=== PATIENT | male | born 1980 | race Caucasian/White ===

== ENCOUNTER 2021-02-11 14:02 | Emergency (ER) | payer MEDICAID ==
[~2021-02-11] VITALS: Ht 162.6 cm; Wt 64.0 kg
[2021-02-11] MEDS ORDERED: MORPHINE SULFATE 4 MG/ML CPJ (NOT FOR IM USE) IV STA (15:01)
[2021-02-11] MEDS ORDERED: FAMOTIDINE 20MG/2ML VIAL IV STA (15:01)
[2021-02-11] MEDS ORDERED: ONDANSETRON HCL 4MG/2ML INJ IV STA (15:01)
[2021-02-11] MEDS ORDERED: SODIUM CHLORIDE 0.9% 1,000 ML IV ONE (15:15)
[2021-02-11 15:43] LABS: BASOPHILS % 1.3 % (0.0-2.0); EOSINOPHILS % 0.6 % (0.0-5.0); HEMATOCRIT. 36.4 % (42.0-52.0); HEMOGLOBIN. 12.5 g/dL (14.0-18.0); MEAN CORPUSCULAR HEMOGLOBIN 29.7 pg (28.0-32.0); MEAN CORPUSCULAR VOLUME 86.7 fL (80.0-94.0); MEAN PLATELET VOLUME 6.8 fl (7.4-10.4); NEUTROPHILS % 52.1 % (40.0-76.0); PLATELET 396 x1000/uL (130-400); RED CELL DISTRIBUTION WIDTH 18.1 % (11.6-14.6)
[2021-02-11 15:48] LABS: CHLORIDE 106 mEq/L (98-107)
[2021-02-11 15:53] LABS: ETHANOL BLOOD 285 mg/dL
[2021-02-11 16:18] LABS: CLARITY URINE CLEAR (CLEAR); COLOR URINE YELLOW (YELLOW); KETONES URINE NEGATIVE (NEGATIVE); LEUKOCYTE ESTERASE URINE NEGATIVE (NEGATIVE); NITRITE URINE NEGATIVE (NEGATIVE); OCCULT BLOOD URINE NEGATIVE (NEGATIVE); PH URINE 6.5 (4.5-8.0); PROTEIN URINE NEGATIVE (NEGATIVE); SPECIFIC GRAVITY URINE 1.008 (1.005-1.030); UROBILINOGEN URINE 0.2 E.U./dL (0.2-1.0)
[2021-02-11 16:33] LABS: *AMPHETAMINES SCREEN URINE NEGATIVE (NEGATIVE); *BARBITURATES SCREEN URINE NEGATIVE (NEGATIVE); *BENZODIAZEPINES SCREEN URINE NEGATIVE (NEGATIVE); *COCAINE SCREEN URINE NEGATIVE (NEGATIVE); METHADONE URINE SCREEN NEGATIVE (NEGATIVE); OPIATES URINE SCREEN NEGATIVE (NEGATIVE); PHENCYCLIDINE URINE SCREEN NEGATIVE (NEGATIVE)
[2021-02-11 16:34] LABS: CANNABINOID URINE SCREEN NEGATIVE (NEGATIVE)
[2021-02-12] MEDS ORDERED: ONDANSETRON HCL 4MG/2ML INJ IV ONE ×3 (00:30→21:45)
[2021-02-12] MEDS ORDERED: IBUPROFEN 600MG TABLET PO ONE (00:30)
[2021-02-12] MEDS ORDERED: METOCLOPRAMIDE HCL 10MG/2ML VIAL IV ONE (04:00)
[2021-02-12] MEDS ORDERED: ACETAMINOPHEN 325MG TABLET PO ONE (21:45)
[2021-02-13 03:11] VITALS: BP 110/71
== END 2021-02-13 03:15 | disposition home or self-care (01) ==
LOC: ER 14:02
DX: R33.9 Retention of urine, unspecified (principal); F10.229 Alcohol dependence with intoxication, unspecified; Y90.8 Blood alcohol level of 240 mg/100 ml or more
CPT/HCPCS: 36415; 51702; 71045; 74176; 80053; 80305; 80320; 81003; 83690; 85025; 93005; 96374; 96375; 96376; 99285; J2270; J2405; J2765; J3490; J7030; Z7610; A4315; G0480

== ENCOUNTER 2021-02-24 03:07 | Emergency (ER) | payer MEDICAID ==
[~2021-02-24] VITALS: Ht 160 cm; Wt 61.0 kg
[2021-02-24] MEDS ORDERED: ACETAMINOPHEN 325MG TABLET PO STA (03:35)
[2021-02-24 04:15] VITALS: BP 110/80
[2021-02-24 04:27] LABS: CHLORIDE 112 mEq/L (98-107)
[2021-02-24 04:31] LABS: BASOPHILS % 0.3 % (0.0-2.0); EOSINOPHILS % 1.6 % (0.0-5.0); HEMATOCRIT. 36.5 % (42.0-52.0); HEMOGLOBIN. 12.3 g/dL (14.0-18.0); LYMPHOCYTES % 45.3 % (20.0-50.0); MEAN CORPUSCULAR HEMOGLOBIN 29.3 pg (28.0-32.0); MEAN CORPUSCULAR VOLUME 86.7 fL (80.0-94.0); MEAN PLATELET VOLUME 6.7 fl (7.4-10.4); NEUTROPHILS % 44.8 % (40.0-76.0); PLATELET 266 x1000/uL (130-400); RED BLOOD CELL COUNT 4.21 mill/uL (4.7-6.1); RED CELL DISTRIBUTION WIDTH 20.2 % (11.6-14.6)
[2021-02-24 05:06] LABS: CLARITY URINE CLEAR (CLEAR); COLOR URINE YELLOW (YELLOW); KETONES URINE NEGATIVE (NEGATIVE); LEUKOCYTE ESTERASE URINE NEGATIVE (NEGATIVE); NITRITE URINE NEGATIVE (NEGATIVE); OCCULT BLOOD URINE NEGATIVE (NEGATIVE); PH URINE 5.5 (4.5-8.0); PROTEIN URINE NEGATIVE (NEGATIVE); SPECIFIC GRAVITY URINE 1.013 (1.005-1.030); UROBILINOGEN URINE 0.2 E.U./dL (0.2-1.0)
[2021-02-24 06:07] LABS: *AMPHETAMINES SCREEN URINE NEGATIVE (NEGATIVE); *BARBITURATES SCREEN URINE NEGATIVE (NEGATIVE); *BENZODIAZEPINES SCREEN URINE PRESUMTIVE POSITIVE (NEGATIVE); *COCAINE SCREEN URINE NEGATIVE (NEGATIVE)
[2021-02-24 06:08] LABS: CANNABINOID URINE SCREEN NEGATIVE (NEGATIVE); METHADONE URINE SCREEN NEGATIVE (NEGATIVE); OPIATES URINE SCREEN NEGATIVE (NEGATIVE); PHENCYCLIDINE URINE SCREEN NEGATIVE (NEGATIVE)
[2021-02-24 07:22] LABS: ETHANOL BLOOD 463 mg/dL
== END 2021-02-24 05:34 | disposition left against medical advice (07) ==
LOC: ER 03:07
DX: F10.10 Alcohol abuse, uncomplicated (principal); R10.9 Unspecified abdominal pain; Y90.9 Presence of alcohol in blood, level not specified
CPT/HCPCS: 36415; 80053; 80305; 80320; 81003; 85025; 99283; G0480

== ENCOUNTER 2021-02-24 13:29 | Emergency (ER) | payer MEDICAID ==
[~2021-02-24] VITALS: Ht 160 cm; Wt 65.0 kg
[2021-02-24 13:30] VITALS: BP 113/64
[2021-02-24] MEDS ORDERED: ONDANSETRON 4MG ODT PO STA (14:33)
[2021-02-24] MEDS ORDERED: MAGNESIUM/ALUMINUM HYDROXIDE/SIMETHICONE 30ML UDC PO ONE (14:45)
[2021-02-24] MEDS ORDERED: VISCOUS LIDOCAINE 2% 15 ML UDC PO ONE (14:45)
== END 2021-02-24 16:36 | disposition left against medical advice (07) ==
LOC: ER 13:29
DX: R10.9 Unspecified abdominal pain (principal); F10.129 Alcohol abuse with intoxication, unspecified; Y90.9 Presence of alcohol in blood, level not specified
CPT/HCPCS: 93005; 99283

== ENCOUNTER 2021-02-24 17:55 | Emergency (ER) | payer MEDICAID ==
[~2021-02-24] VITALS: Ht 160 cm; Wt 73.0 kg
[2021-02-24 18:11] VITALS: BP 101/56
== END 2021-02-24 20:00 | disposition left against medical advice (07) ==
LOC: ER 17:55
DX: Z53.21 Procedure and treatment not carried out due to patient leaving prior to being seen by health care provider (principal); I49.9 Cardiac arrhythmia, unspecified
CPT/HCPCS: 93005

== ENCOUNTER 2021-02-25 17:20 | Inpatient (IN) | payer MEDICAID, OTHER ==
[~2021-02-25] VITALS: Ht 162.6 cm; Wt 58.1 kg
[2021-02-25] MEDS ORDERED: ONDANSETRON HCL 4MG/2ML INJ IV STA (18:11)
[2021-02-25] MEDS ORDERED: MORPHINE SULFATE 4 MG/ML CPJ (NOT FOR IM USE) IV STA (18:11)
[2021-02-25] MEDS ORDERED: SODIUM CHLORIDE 0.9% 1,000 ML IV ONE (18:15)
[2021-02-25 18:45] LABS: BASOPHILS % 0.5 % (0.0-2.0); EOSINOPHILS % 0.5 % (0.0-5.0); HEMATOCRIT. 35.1 % (42.0-52.0); HEMOGLOBIN. 12.2 g/dL (14.0-18.0); LYMPHOCYTES % 28.4 % (20.0-50.0); MEAN CORPUSCULAR HEMOGLOBIN 29.8 pg (28.0-32.0); MEAN CORPUSCULAR VOLUME 85.7 fL (80.0-94.0); MEAN PLATELET VOLUME 6.8 fl (7.4-10.4); MONOCYTES % 13.2 % (2.0-8.0); NEUTROPHILS % 57.4 % (40.0-76.0); PLATELET 294 x1000/uL (130-400); RED CELL DISTRIBUTION WIDTH 19.4 % (11.6-14.6)
[2021-02-25 18:51] LABS: CHLORIDE 105 mEq/L (98-107)
[2021-02-25 18:55] LABS: ETHANOL BLOOD 248 mg/dL
[2021-02-25 18:56] LABS: PARTIAL THROMBOPLASTIN TIME 27.9 sec (23.4-31.0); PROTHROMBIN TIME 10.7 sec (9.6-11.0)
[2021-02-25] MEDS ORDERED: PANTOPRAZOLE SODIUM 40 MG/VIAL IV ONE (21:00)
[2021-02-25 21:59] LABS: *AMPHETAMINES SCREEN URINE NEGATIVE (NEGATIVE); *BARBITURATES SCREEN URINE NEGATIVE (NEGATIVE); *BENZODIAZEPINES SCREEN URINE PRESUMTIVE POSITIVE (NEGATIVE); *COCAINE SCREEN URINE NEGATIVE (NEGATIVE); METHADONE URINE SCREEN NEGATIVE (NEGATIVE); OPIATES URINE SCREEN PRESUMTIVE POSITIVE (NEGATIVE); PHENCYCLIDINE URINE SCREEN NEGATIVE (NEGATIVE)
[2021-02-25 22:00] LABS: CANNABINOID URINE SCREEN NEGATIVE (NEGATIVE)
[2021-02-25 22:08] LABS: CLARITY URINE CLEAR (CLEAR); COLOR URINE YELLOW (YELLOW); KETONES URINE NEGATIVE (NEGATIVE); LEUKOCYTE ESTERASE URINE NEGATIVE (NEGATIVE); NITRITE URINE NEGATIVE (NEGATIVE); OCCULT BLOOD URINE NEGATIVE (NEGATIVE); PROTEIN URINE NEGATIVE (NEGATIVE); SPECIFIC GRAVITY URINE 1.075 (1.005-1.030); UROBILINOGEN URINE 0.2 E.U./dL (0.2-1.0)
[2021-02-26] VITALS: BP_SYST 109; BP_SYST 117; BP_DIAS 75; BP_DIAS 76
[2021-02-26] MEDS ORDERED: CLONIDINE 0.1MG TABLET PO PRN (00:45)
[2021-02-26] MEDS ORDERED: LORAZEPAM 2MG/ML CPJ IV PRN (00:45)
[2021-02-26] MEDS ORDERED: DIPHENHYDRAMINE 50MG/ML VIAL IV PRN (00:45)
[2021-02-26] MEDS: MORPHINE SULFATE 2 MG/ML CPJ (NOT FOR IM USE) IV PRN ×3 (01:17→21:24)
[2021-02-26] MEDS: ONDANSETRON HCL 4MG/2ML INJ IV PRN ×4 (01:18→21:23)
[2021-02-26] MEDS ORDERED: MVI, ADULT NO.1 10 ML, FOLIC ACID 1 MG, THIAMINE HCL 100 MG in SODIUM CHLORIDE 0.9% 1,0... IV NR (02:30)
[2021-02-26] MEDS ORDERED: LEVETIRACETAM 500 MG in SODIUM CHLORIDE 0.9% 100 ML IV SCH (03:30)
[2021-02-26 04:00] VITALS: BP 111/72
[2021-02-26] MEDS: LEVETIRACETAM 500MG PREMIX 100 ML IV SCH ×2 (05:32→17:15)
[2021-02-26 06:44] LABS: BASOPHILS % 0.5 % (0.0-2.0); HEMATOCRIT. 31.4 % (42.0-52.0); HEMOGLOBIN. 10.8 g/dL (14.0-18.0); LYMPHOCYTES % 27.3 % (20.0-50.0); MEAN CORPUSCULAR VOLUME 87.3 fL (80.0-94.0); MEAN PLATELET VOLUME 7.3 fl (7.4-10.4); MONOCYTES % 12.6 % (2.0-8.0); NEUTROPHILS % 58.6 % (40.0-76.0); PLATELET 219 x1000/uL (130-400); RED CELL DISTRIBUTION WIDTH 19.4 % (11.6-14.6)
[2021-02-26 07:02] LABS: CHLORIDE 106 mEq/L (98-107)
[2021-02-26 08:00] VITALS: BP 120/74
[2021-02-26] MEDS: PANTOPRAZOLE SODIUM 40 MG/VIAL IV SCH ×2 (09:19→21:23)
[2021-02-26] MEDS: SODIUM CHLORIDE 0.9% 1,000 ML IV SCH ×2 (10:21→17:15)
[2021-02-26 12:00] VITALS: BP 110/70
[2021-02-26 16:00] VITALS: BP 111/60
[2021-02-26 20:14] VITALS: BP 131/81
[2021-02-27] VITALS: BP 100/55
[2021-02-27] MEDS: ONDANSETRON HCL 4MG/2ML INJ IV PRN ×3 (01:48→14:18)
[2021-02-27] MEDS: MORPHINE SULFATE 2 MG/ML CPJ (NOT FOR IM USE) IV PRN ×2 (01:49→21:21)
[2021-02-27] MEDS: SODIUM CHLORIDE 0.9% 1,000 ML IV SCH ×3 (01:51→18:19)
[2021-02-27 04:00] VITALS: BP 97/61
[2021-02-27] MEDS: LEVETIRACETAM 500MG PREMIX 100 ML IV SCH ×2 (05:03→18:18)
[2021-02-27 07:05] LABS: BASOPHILS % 0.6 % (0.0-2.0); EOSINOPHILS % 2.8 % (0.0-5.0); HEMATOCRIT. 33.4 % (42.0-52.0); HEMOGLOBIN. 11.3 g/dL (14.0-18.0); LYMPHOCYTES % 44.7 % (20.0-50.0); MEAN CORPUSCULAR HEMOGLOBIN 29.7 pg (28.0-32.0); MEAN CORPUSCULAR VOLUME 87.4 fL (80.0-94.0); MEAN PLATELET VOLUME 7.3 fl (7.4-10.4); MONOCYTES % 14.5 % (2.0-8.0); NEUTROPHILS % 37.4 % (40.0-76.0); PLATELET 224 x1000/uL (130-400); RED BLOOD CELL COUNT 3.82 mill/uL (4.7-6.1)
[2021-02-27 07:13] LABS: CHLORIDE 107 mEq/L (98-107)
[2021-02-27 08:00] VITALS: BP 122/66
[2021-02-27] MEDS: PANTOPRAZOLE SODIUM 40 MG/VIAL IV SCH ×2 (09:01→21:21)
[2021-02-27 12:00] VITALS: BP 107/65
[2021-02-27 16:00] VITALS: BP 107/65
[2021-02-27 20:00] VITALS: BP 107/69
[2021-02-28] VITALS: BP 109/58
[2021-02-28] MEDS: SODIUM CHLORIDE 0.9% 1,000 ML IV SCH ×3 (03:05→17:25)
[2021-02-28 04:00] VITALS: BP 101/66
[2021-02-28] MEDS: LEVETIRACETAM 500MG PREMIX 100 ML IV SCH ×2 (05:43→17:26)
[2021-02-28 08:00] VITALS: BP 101/61
[2021-02-28] MEDS: PANTOPRAZOLE SODIUM 40 MG/VIAL IV SCH (09:42)
[2021-02-28 12:00] VITALS: BP 108/50
[2021-02-28 16:00] VITALS: BP 99/57
[2021-02-28 18:10] VITALS: BP 108/57
== END 2021-02-28 18:45 | disposition home or self-care (01) | DRG 241 ==
LOC: ER 17:20 → 5WST 21:50 → ENRESERV 22:27
PROVIDERS: ADMIT Internal Medicine; ATTEND Internal Medicine
DX: K29.01 Acute gastritis with bleeding (principal); G93.41 Metabolic encephalopathy; K85.20 Alcohol induced acute pancreatitis without necrosis or infection; N17.9 Acute kidney failure, unspecified; R56.9 Unspecified convulsions; Y90.8 Blood alcohol level of 240 mg/100 ml or more; D64.9 Anemia, unspecified; F10.239 Alcohol dependence with withdrawal, unspecified; E86.0 Dehydration; F17.200 Nicotine dependence, unspecified, uncomplicated; S00.81XA Abrasion of other part of head, initial encounter; W18.39XA Other fall on same level, initial encounter; Y93.89 Activity, other specified; Y92.89 Other specified places as the place of occurrence of the external cause; Z59.0 Homelessness; Y99.8 Other external cause status
CPT/HCPCS: 36415; 71045; 71260; 74177; 76700; 80048; 80053; 80305; 80320; 81003; 82270; 83880; 84484; 85025; 86850; 86900; 93005; 99285; C9113; J1953; J2270; J2405; J3411; J3490; J7030; G0480

== ENCOUNTER 2021-03-01 20:17 | Emergency (ER) | payer MEDICAID ==
[~2021-03-01] VITALS: Ht 167.6 cm; Wt 75.0 kg
[2021-03-01] MEDS ORDERED: MAGNESIUM/ALUMINUM HYDROXIDE/SIMETHICONE 30ML UDC PO STA (20:54)
[2021-03-01 21:29] LABS: BASOPHILS % 0.7 % (0.0-2.0); EOSINOPHILS % 0.3 % (0.0-5.0); HEMATOCRIT. 35.4 % (42.0-52.0); HEMOGLOBIN. 12.3 g/dL (14.0-18.0); LYMPHOCYTES % 45.7 % (20.0-50.0); MEAN CORPUSCULAR HEMOGLOBIN 29.9 pg (28.0-32.0); MEAN CORPUSCULAR VOLUME 86.1 fL (80.0-94.0); MEAN PLATELET VOLUME 6.8 fl (7.4-10.4); MONOCYTES % 5.1 % (2.0-8.0); NEUTROPHILS % 48.2 % (40.0-76.0); PLATELET 286 x1000/uL (130-400); RED BLOOD CELL COUNT 4.11 mill/uL (4.7-6.1); RED CELL DISTRIBUTION WIDTH 19.1 % (11.6-14.6)
[2021-03-01 21:32] LABS: CLARITY URINE CLEAR (CLEAR); COLOR URINE YELLOW (YELLOW); KETONES URINE NEGATIVE (NEGATIVE); LEUKOCYTE ESTERASE URINE NEGATIVE (NEGATIVE); NITRITE URINE NEGATIVE (NEGATIVE); OCCULT BLOOD URINE NEGATIVE (NEGATIVE); PH URINE 7.5 (4.5-8.0); PROTEIN URINE NEGATIVE (NEGATIVE); SPECIFIC GRAVITY URINE 1.003 (1.005-1.030); UROBILINOGEN URINE 0.2 E.U./dL (0.2-1.0)
[2021-03-01 21:33] LABS: CHLORIDE 112 mEq/L (98-107)
[2021-03-01 21:46] LABS: *AMPHETAMINES SCREEN URINE NEGATIVE (NEGATIVE); *BARBITURATES SCREEN URINE NEGATIVE (NEGATIVE); *COCAINE SCREEN URINE NEGATIVE (NEGATIVE)
[2021-03-01 21:46] LABS: ETHANOL BLOOD 328 mg/dL
[2021-03-01 21:47] LABS: *BENZODIAZEPINES SCREEN URINE PRESUMTIVE POSITIVE (NEGATIVE); CANNABINOID URINE SCREEN NEGATIVE (NEGATIVE); METHADONE URINE SCREEN NEGATIVE (NEGATIVE); OPIATES URINE SCREEN NEGATIVE (NEGATIVE); PHENCYCLIDINE URINE SCREEN NEGATIVE (NEGATIVE)
[2021-03-01] MEDS ORDERED: POTASSIUM CHLORIDE 20MEQ TABLET SR PO ONE (22:00)
[2021-03-01] MEDS ORDERED: CHLORDIAZEPOXIDE 25MG CAPSULE PO ONE (22:00)
[2021-03-01 22:31] VITALS: BP 109/67
== END 2021-03-01 22:34 | disposition home or self-care (01) ==
LOC: ER 20:17
DX: T51.0X1A Toxic effect of ethanol, accidental (unintentional), initial encounter (principal); E87.6 Hypokalemia; F10.20 Alcohol dependence, uncomplicated; Y92.89 Other specified places as the place of occurrence of the external cause; Y90.9 Presence of alcohol in blood, level not specified
CPT/HCPCS: 36415; 74176; 80053; 80305; 80320; 81003; 85025; 99285; G0480